=== PATIENT | female | born 2000 | race African-American/Black ===

== ENCOUNTER 2019-05-01 00:23 | Emergency (ER) | payer SELFPAY | END 2019-05-01 02:35 | LOC: JER 00:23 ==

== ENCOUNTER 2019-05-14 13:59 | Emergency (ER) | payer SELFPAY ==
[2019-05-14 14:04] VITALS: BP 114/63; PULSE 93; TEMP 98.6; BMI 20.3
--- NOTE | 2019-05-14 14:59 | PDOC ---
History of Present Illness - General Chief Complaint: Rash Stated Complaint: SKIN ITCHY Time Seen by Provider: 05/14/19 14:10 History Source: Patient Exam Limitations: No Limitations Past History - Past Medical History Allergies/Adverse Reactions: Allergies Allergy/AdvReac Type Severity Reaction Status Date / Time No Known Allergies Allergy Verified 05/14/19 14:04 Home Medications: Ambulatory Orders Clotrimazole/Betamet Diprop [Lotrisone Cream (Small Tube)] 1 applic TP BID #1 tube 05/14/19 COPD: No - Suicide/Smoking/Psychosocial Hx Smoking History: Never smoked Have you smoked in the past 12 months: No Hx Alcohol Use: No Drug/Substance Use Hx: No *Physical Exam - Vital Signs Last Vital Signs Temp Pulse Resp BP Pulse Ox 98.6 F 93 H 18 114/63 99 05/14/19 14:01 05/14/19 14:01 05/14/19 14:01 05/14/19 14:01 05/14/19 14:01 - Physical Exam General Appearance: No: Apparent Distress Respiratory/Chest: positive: Lungs Clear, Normal Breath Sounds. negative: Respiratory Distress Cardiovascular: positive: Regular Rhythm, Regular Rate, S1, S2. negative: Murmur Female Pelvic Exam: positive: other (+R labia minora slightly swollen, slight erythema external vagina, no lesions noted, no discharge noted) Gastrointestinal/Abdominal: positive: Normal Bowel Sounds, Soft. negative: Tender, Distended, Guarding, Rebound Neurologic: positive: Alert, Normal Mood/Affect Medical Decision Making - Medical Decision Making 18 y/o F with no sig pmh presents with itching along vaginal area after using Men's body wash along area yesterday. Denies fever, sob, cp, abd pain, n/v/d, unusual vaginal discharge Possible allergic vs fungal rash? Will discharge on Lotrisone 05/14/19 14:55 *DC/Admit/Observation/Transfer Diagnosis at time of Disposition: Rash - Discharge Dispostion Disposition: HOME Condition at time of disposition: Stable Decision to Admit order: No - Prescriptions Prescriptions: Clotrimazole/Betamet Diprop [Lotrisone Cream (Small Tube)] 1 applic TP BID #1 tube - Referrals - Patient Instructions Printed Discharge Instructions: DI for Rash Additional Instructions: Thank you for choosing [facility]. It was a pleasure taking care of you. Apply the cream twice a day Follow-up with polymer tester in 2-3 days Avoid douching. You can clean external vaginal area with unscented soap and water. Return to the Emergency Department if your symptoms worsen or persist or have other concerning symptoms. - Post Discharge Activity
== END 2019-05-14 15:00 | disposition home or self-care (01) ==
LOC: JERFT 13:59
DX: R21 Rash and other nonspecific skin eruption (principal)
CPT/HCPCS: 99281-25

== ENCOUNTER 2019-07-04 10:40 | Emergency (ER) | payer SELFPAY ==
[2019-07-04 10:43] VITALS: BP 101/56; PULSE 74; TEMP 98.1; BMI 20.1
--- NOTE | 2019-07-04 11:28 | PDOC ---
History of Present Illness - General Chief Complaint: Bite Stated Complaint: BUG BITE Time Seen by Provider: 07/04/19 11:08 History Source: Patient - History of Present Illness Initial Comments: 07/04/19 11:57 Chief complaint: insect bite Patient is a healthy 18-year-old female who states she was bitten yesterday by an insect, does not know what it was and the area is itchy. Patient states she' s never had this before and was concerned because she didn't know what it was. Patient has not done any treatment. Patient otherwise feels well. GENERAL/CONSTITUTIONAL: No fever, weakness. dizziness HEAD, EYES, EARS, NOSE AND THROAT: No change in vision. No ear pain or discharge. No sore throat. CARDIOVASCULAR: No chest pain RESPIRATORY: No shortness of breath or cough GASTROINTESTINAL: No pain, nausea, vomiting, diarrhea or constipation GENITOURINARY: No dysuria MUSCULOSKELETAL: No neck or back pain SKIN: +insect bite NEUROLOGIC: No headache, vertigo, loss of consciousness, or loss of sensation. GENERAL: The patient is awake, alert, and fully oriented, in no acute distress. HEAD: Normal with no signs of trauma. EYES: Pupils equal, round and reactive to light, sclera anicteric, conjunctiva clear. ENT: pharynx: no erythema, no exudate, uvula midline NECK: supple CHEST: clear, nontender, rr BACK: no tenderness or signs of injury EXTREMITIES: right thigh with 2 cm raised red blanchable pruitic area. no signs of infection. no swelling. rest of extremities, Normal range of motion, no edema. NEUROLOGICAL: Normal speech, normal gait. SKIN: Warm, Dry Past History - Past Medical History Allergies/Adverse Reactions: Allergies Allergy/AdvReac Type Severity Reaction Status Date / Time No Known Allergies Allergy Verified 07/04/19 10:43 Home Medications: Ambulatory Orders Clotrimazole/Betamet Diprop [Lotrisone Cream (Small Tube)] 1 applic TP BID #1 tube 05/14/19 COPD: No - Suicide/Smoking/Psychosocial Hx Smoking History: Never smoked Have you smoked in the past 12 months: No Hx Alcohol Use: No Drug/Substance Use Hx: No *Physical Exam - Vital Signs Last Vital Signs Temp Pulse Resp BP Pulse Ox 98.1 F 74 18 101/56 L 98 07/04/19 10:41 07/04/19 10:41 07/04/19 10:41 07/04/19 10:41 07/04/19 10:41 Medical Decision Making - Medical Decision Making 07/04/19 12:10 Discussed issues, findings, results, applicable medications and treatments and follow-up. All these were understood and all questions were answered *DC/Admit/Observation/Transfer Diagnosis at time of Disposition: Insect bite Qualifiers: Encounter type: initial encounter Site of insect bite: thigh Laterality: right Qualified Code(s): S70.361A - Insect bite (nonvenomous), right thigh, initial encounter - Discharge Dispostion Disposition: HOME Condition at time of disposition: Stable - Referrals - Patient Instructions Printed Discharge Instructions: How to Care for an Insect Bite or Sting Additional Instructions: Clean with soap and water 2-3 times daily apply Benadryl cream every 4 hours for itching until itching stops. You can also apply [id number] cortisone cream twice a day Have her reevaluated if redness, pus, fever or getting worse Followup with your doctor if any concerns - Post Discharge Activity
== END 2019-07-04 11:33 | disposition home or self-care (01) ==
LOC: JERFT 10:40
DX: S70.361A Insect bite (nonvenomous), right thigh, initial encounter (principal); W57.XXXA Bitten or stung by nonvenomous insect and other nonvenomous arthropods, initial encounter; Y93.89 Activity, other specified; Y92.89 Other specified places as the place of occurrence of the external cause
CPT/HCPCS: 99281-25

== ENCOUNTER 2019-12-30 00:05 | Emergency (ER) | payer OTHER ==
--- NOTE | 2019-12-30 00:47 | PDOC ---
History of Present Illness - General Chief Complaint: Headache Stated Complaint: HEADACHE Past History - Past Medical History Allergies/Adverse Reactions: Allergies Allergy/AdvReac Type Severity Reaction Status Date / Time No Known Allergies Allergy Verified 12/30/19 00:22 Home Medications: Ambulatory Orders NK [No Known Home Medication] 12/30/19 COPD: No - Psycho Social/Smoking Cessation Hx Smoking History: Never smoked Have you smoked in the past 12 months: No Information on smoking cessation initiated: No Hx Alcohol Use: No Drug/Substance Use Hx: No Review of Systems - Review of Systems Able to Perform ROS?: Yes Comments:: GENERAL/CONSTITUTIONAL: No fever or chills. No weakness._ HEAD, EYES, EARS, NOSE AND THROAT: No change in vision. No change in hearing. No sore throat._ CARDIOVASCULAR: No chest pain or shortness of breath_ RESPIRATORY: Denies cough, hemoptysis_ GASTROINTESTINAL: No nausea, vomiting, diarrhea or constipation._ GENITOURINARY: No dysuria, frequency, or change in urination._ MUSCULOSKELETAL: No joint or muscle swelling or pain. No neck or back pain._ SKIN: No rash_ NEUROLOGIC: No headache, vertigo, loss of consciousness, or change in strength/ sensation._ ENDOCRINE: No increased thirst. No abnormal weight change_ HEMATOLOGIC/LYMPHATIC: No anemia, easy bleeding, or history of blood clots._ ALLERGIC/IMMUNOLOGIC: No hives or skin allergy._ 12/30/19 00:46 Is the patient limited [place] proficient: No *Physical Exam - Vital Signs Last Vital Signs Temp Pulse Resp BP Pulse Ox 98.0 F 79 20 110/68 99 12/30/19 00:22 12/30/19 00:22 12/30/19 00:22 12/30/19 00:22 12/30/19 00:22 - Physical Exam GENERAL: Awake, alert, and oriented to person/place/time, in no acute distress_ HEAD: No signs of trauma, normocephalic, atraumatic _ EYES: PERRLA, EOMI, sclera anicteric, conjunctiva clear_ ENT: Hearing grossly normal, nares patent, oropharynx clear without exudates. No uvular deviation. Moist mucosa_ NECK: Normal ROM, supple, no lymphadenopathy, JVD, or masses_ LUNGS: No distress, speaks in full sentences, clear to auscultation bilaterally _ HEART: Regular rate and rhythm, normal S1 and S2, no murmurs appreciated, peripheral pulses normal and equal bilaterally._ ABDOMEN: Soft, nontender, normoactive bowel sounds. No guarding, no rebound. No masses_ EXTREMITIES: Normal inspection, Normal range of motion, no edema. No clubbing or cyanosis_ NEUROLOGICAL: Cranial nerves II through XII grossly intact. Normal speech, normal gait, no focal sensorimotor deficits _ SKIN: Warm, Dry, normal turgor, no rashes or lesions noted_ 12/30/19 00:46
[2019-12-30 00:51] VITALS: BP 110/68; PULSE 79; TEMP 98; BMI 21.3
--- NOTE | 2019-12-30 01:40 | PDOC ---
History of Present Illness - General Chief Complaint: Headache Stated Complaint: HEADACHE Time Seen by Provider: 12/30/19 01:19 - History of Present Illness Initial Comments: 12/30/19 21:00 19 yo F PMH migraines presenting with bitemporal headache. Patient reports that it began this evening, unresponsive to Tylenol, without any associated photophobia, phonophobia, N/V. Has had similar headaches in the past, but they have typically resolved with Tylenol. Does not have a neurologist. Past History - Past Medical History Allergies/Adverse Reactions: Allergies Allergy/AdvReac Type Severity Reaction Status Date / Time No Known Allergies Allergy Verified 12/30/19 00:22 Home Medications: Ambulatory Orders NK [No Known Home Medication] 12/30/19 COPD: No - Psycho Social/Smoking Cessation Hx Smoking History: Never smoked Have you smoked in the past 12 months: No Information on smoking cessation initiated: No Hx Alcohol Use: No Drug/Substance Use Hx: No Review of Systems - Review of Systems Comments:: 12/30/19 21:07 GENERAL/CONSTITUTIONAL: denies fever, chills, diaphoresis, generalized weakness , malaise, loss of appetite, weight change HEAD, EYES, EARS, NOSE AND THROAT: denies rhinorrhea, nasal congestion, throat pain, throat swelling, difficulty swallowing, mouth swelling, ear pain, eye pain , visual changes NEUROLOGIC: endorses bitemporal headache. Denies focal weakness or paresthesias , dizziness, unsteady gait, seizure, mental status changes, bladder or bowel incontinence CARDIOVASCULAR: denies chest pain, syncope, palpitations, irregular heart rate, lightheadedness, peripheral edema RESPIRATORY: denies cough, shortness of breath, dyspnea with exertion, orthopnea , wheezing, stridor, hemoptysis GASTROINTESTINAL: denies abdominal pain, abdominal distension, nausea, vomiting , diarrhea, constipation, melena, hematochezia GENITOURINARY: denies dysuria, frequency, urgency, hesitancy, hematuria, flank pain, genital pain MUSCULOSKELETAL: denies myalgia, arthralgia, joint swelling, back pain, neck pain SKIN: denies rash, itching, pallor HEMATOLOGIC/IMMUNOLOGIC: denies easy bleeding, easy bruising, lymphadenopathy, frequent infections ENDOCRINE: denies unexplained weight gain, unexplained weight loss, heat intolerance, cold intolerance PSYCHIATRIC: denies anxiety, depression, suicidal or homicidal ideation, hallucinations. *Physical Exam - Vital Signs Last Vital Signs Temp Pulse Resp BP Pulse Ox 98.0 F 79 20 110/68 99 12/30/19 00:22 12/30/19 00:22 12/30/19 00:22 12/30/19 00:22 12/30/19 00:22 - Physical Exam 12/31/19 05:08 GENERAL: Awake, alert, and fully oriented, in no acute distress. HEAD: Normal with no signs of trauma. EYES: Pupils equal, round and reactive to light, extraocular movements intact, sclera anicteric, conjunctiva clear. No lid lag. EARS, NOSE, THROAT: Ears normal, nares patent, oropharynx clear without exudates. Dry mucous membranes. NECK: Normal range of motion, supple without lymphadenopathy, JVD, or masses. LUNGS: Breath sounds equal, clear to auscultation bilaterally. No wheezes, and no crackles. No accessory muscle use. HEART: Regular rate and rhythm, normal S1 and S2 without murmur, rub or gallop. ABDOMEN: Soft, nontender, non-distended, normoactive bowel sounds, negative guarding, negative rebound MUSCULOSKELETAL: Normal range of motion at all joints. No bony deformities or tenderness. No CVA tenderness. UPPER EXTREMITIES: 2+ pulses, warm, well-perfused. No cyanosis. No clubbing. Cap refill <2 seconds. No peripheral edema. LOWER EXTREMITIES: 2+ pulses, warm, well-perfused. No calf tenderness. No peripheral edema. NEUROLOGICAL: Cranial nerves II-XII intact. Normal speech. Normal gait. PSYCHIATRIC: Cooperative. Good eye contact. Appropriate mood and affect. SKIN: Warm, dry, normal turgor, no rashes or lesions noted. ED Treatment Course - LABORATORY CBC & Chemistry Diagram: 12/30/19 01:40 12/30/19 01:40 Medical Decision Making - Medical Decision Making 12/30/19 21:00 Concern for possible tension headache. Will r/o , treat with IVF, Reglan, CBC, CMP, Ofirmev. 12/30/19 23:17 Patient feeling better. Will dc with neurological follow up. Discharge - Discharge Information Problems reviewed: Yes Clinical Impression/Diagnosis: Headache - Follow up/Referral Referrals: Matt Maradiaga MD [Primary Care Provider] - Mehul Myers MD [Staff Physician] - - Patient Discharge Instructions Patient Printed Discharge Instructions: DI for Migraine Additional Instructions: You were seen with a headache. This improved with medications. Please follow with your primary care doctor. We have also referred you to a neurologist, please reach out to make an appointment. Return to the ED if you develop worsening symptoms. - Post Discharge Activity
[2019-12-30] MEDS ORDERED: METOCLOPRAMIDE HCL INJECTION 10 MG/2 ML VIAL IVPUSH ONE (01:41)
[2019-12-30] MEDS ORDERED: ACETAMINOPHEN 1000 MG/100 ML VIAL (NON FORMULARY) IVPB ONE (01:41)
[2019-12-30] MEDS ORDERED: LACTATED RINGERS SOLUTION 1000 ML INFUS.BAG IV ONE (01:41)
[2019-12-30] MEDS ORDERED: METOCLOPRAMIDE HCL INJECTION 10 MG/2 ML VIAL ONE (01:54)
[2019-12-30] MEDS ORDERED: ACETAMINOPHEN INJECTION 100 ML IVPB ONE (01:54)
[2019-12-30 01:57] LABS: BASO % 1.5 % (0-2.0); EOS % 2.3 % (0-4.5); HEMATOCRIT 36.1 % (32.4-45.2); HEMOGLOBIN 12.3 GM/dL (10.7-15.3); LYMPH % 47.9 % (8-40); MCH 30.7 pg (25.7-33.7); MEAN CELL VOLUME 90.3 fl (80-96); MEAN PLT VOLUME 9.5 fl (7.5-11.1); MONO % 7.2 % (3.8-10.2); NEUT % 41.1 % (42.8-82.8); PLATELET COUNT 198 K/MM3 (134-434); RDW 14.5 % (11.6-15.6); WHITE BLOOD COUNT 4.6 K/mm3 (4.0-10.0)
[2019-12-30 02:31] LABS: ALBUMIN 3.8 g/dl (3.4-5.0); BILIRUBIN,TOTAL 0.3 mg/dL (0.2-1); BLOOD UREA NITROGEN 13.1 mg/dL (7-18); CALCIUM 9.1 mg/dL (8.5-10.1); CREATININE 0.7 mg/dL (0.55-1.3); POTASSIUM 3.6 mmol/L (3.5-5.1)
[2019-12-30 02:53] LABS: URINE APPEARANCE CLOUDY; URINE BILIRUBIN NEGATIVE (NEGATIVE); URINE COLOR YELLOW; URINE GLUCOSE (UA) NEGATIVE (NEGATIVE); URINE KETONE NEGATIVE (NEGATIVE); URINE LEUK ESTERASE NEGATIVE (NEGATIVE); URINE NITRITE NEGATIVE (NEGATIVE); URINE PROTEIN NEGATIVE (NEGATIVE)
== END 2019-12-30 03:22 | disposition home or self-care (01) ==
LOC: JER 00:05
PROC: 3E033NZ Introduction of Analgesics, Hypnotics, Sedatives into Peripheral Vein, Percutaneous Approach (ICD-10-PCS; principal; 2019-12-30)
PROC: 3E033GC Introduction of Other Therapeutic Substance into Peripheral Vein, Percutaneous Approach (ICD-10-PCS; 2019-12-30)
DX: R51 Headache (principal)
CPT/HCPCS: 36415; 80053; 81003; 84703; 85025; 87086; 96374; 96375; 99284-25; J0131

== ENCOUNTER 2020-01-22 00:10 | Emergency (ER) | payer OTHER ==
[2020-01-22 00:34] VITALS: BP 111/60; PULSE 68; TEMP 97.9; BMI 19.3
[2020-01-22] MEDS ORDERED: CLOTRIMAZOLE 1% CREAM 15 GM TUBE TP ONE (00:48)
--- NOTE | 2020-01-22 01:01 | PDOC ---
History of Present Illness - General Chief Complaint: Rash Stated Complaint: RASH Time Seen by Provider: 01/22/20 00:40 History Source: Patient Exam Limitations: No Limitations - History of Present Illness Initial Comments: 01/22/20 00:52 Patient is a 19-year-old female with no pmhx c/o rash x 1 week. States she had a little spot on the left breast which has progressively gotten bigger but then today she saw little spots coming up on the thorax. Patient states the rash is not itchy, or painful. Denies any sick contact, does not play sports. PMD: does not remember name PMHX: as above PSOCHX: neg etoh, cig, drugs ALL: NKDA GENERAL/CONSTITUTIONAL: [No fever or chills. No weakness. No weight change.] HEAD, EYES, EARS, NOSE AND THROAT: [No change in vision. No ear pain or discharge. No sore throat.] CARDIOVASCULAR: [No chest pain or shortness of breath.] RESPIRATORY: [No cough, wheezing, or hemoptysis.] GASTROINTESTINAL: [No nausea, vomiting, diarrhea or constipation. No rectal bleeding.] MUSCULOSKELETAL: [No joint or muscle swelling or pain. No neck or back pain.] SKIN AND BREASTS: [(+) rash or easy bruising.] HEMATOLOGIC/LYMPHATIC: [No anemia, easy bleeding, or history of blood clots.] GENERAL: [The patient is awake, alert, and fully oriented, in no acute distress.] NECK: [Normal range of motion, supple without lymphadenopathy, JVD, or masses.] LUNGS: [Breath sounds equal, clear to auscultation bilaterally. No wheezes, and no crackles.] HEART: [Regular rate and rhythm, normal S1 and S2 without murmur, rub.] ABDOMEN: [Soft, nontender, normoactive bowel sounds. No guarding, no rebound. No masses.] EXTREMITIES: [Normal range of motion, no edema. No clubbing or cyanosis. No cords, erythema, or tenderness.] NEUROLOGICAL: [Cranial nerves II through XII grossly intact. Normal speech, normal gait.] SKIN: [Warm, Dry, normal turgor, (+) raised hyperpigment scaly rashes noted on left breast and upper thorax, no other lesions noted.] Past History - Past Medical History Allergies/Adverse Reactions: Allergies Allergy/AdvReac Type Severity Reaction Status Date / Time No Known Allergies Allergy Verified 01/22/20 00:34 Home Medications: Ambulatory Orders Oxiconazole Nitrate 60 gm TP BID #1 cream..g. 01/22/20 COPD: No - Psycho Social/Smoking Cessation Hx Smoking History: Never smoked Have you smoked in the past 12 months: No Hx Alcohol Use: No Drug/Substance Use Hx: No *Physical Exam - Vital Signs Last Vital Signs Temp Pulse Resp BP Pulse Ox 97.9 F 68 18 111/60 97 01/22/20 00:10 01/22/20 00:10 01/22/20 00:10 01/22/20 00:10 01/22/20 00:10 Medical Decision Making - Medical Decision Making 01/22/20 00:52 Patient is a 19-year-old female with no pmhx c/o rash x 1 week. States she had a little spot on the left breast which has progressively gotten bigger but then today she saw little spots coming up on the thorax. Patient states the rash is not itchy, or painful. Denies any sick contact, does not play sports. Symptoms consistent with tinea corporis Clotrimazole applied in the ED I discussed the physical exam findings, ancillary test results and final diagnoses with the patient. I answered all of the patient's questions. The p atient was satisfied with the care received and felt comfortable with the discharge plan and treatment plan. The Patient agrees to follow up with the primary care physician within 24-72 hours. Discharge - Discharge Information Problems reviewed: Yes Clinical Impression/Diagnosis: Tinea corporis Condition: Stable Disposition: HOME - Additional Discharge Information Prescriptions: Oxiconazole Nitrate 60 gm TP BID #1 cream..g. - Follow up/Referral - Patient Discharge Instructions Patient Printed Discharge Instructions: DI for Tinea Corporis Additional Instructions: Your Discharge Instructions: You must call primary care physician within 24 hours to arrange follow-up. Return to the Emergency Department with any new, persistent or worsening symptoms, for fever, chills, SOB, dizziness or any other concerning changes that may occur. You must follow-up with dermatology for further evaluation and treatment. - Post Discharge Activity
== END 2020-01-22 01:32 | disposition home or self-care (01) ==
LOC: JER 00:10
DX: B35.4 Tinea corporis (principal)
CPT/HCPCS: 99283-25

== ENCOUNTER 2021-12-02 10:45 | Emergency (ER) | payer OTHER ==
[2021-12-02 10:54] VITALS: BP 111/76; PULSE 86; TEMP 97.8; BMI 22.1
[2021-12-02] MEDS ORDERED: IBUPROFEN 400 MG TABLET (FP) PO ONE ×2 (11:11→11:14)
== END 2021-12-02 11:32 | disposition home or self-care (01) ==
LOC: JERFT 10:45
DX: H92.03 Otalgia, bilateral (principal)
CPT/HCPCS: 99283-25

== ENCOUNTER 2022-11-12 12:41 | Emergency (ER) | payer OTHER ==
[2022-11-12 12:54] VITALS: BP 105/70; PULSE 80; RESP 19; TEMP 98; BMI 20.9
[2022-11-12 13:55] LABS: EPI CELLS >36 /uL (0-25.1); HCG,QUALITATIVE URINE Negative; HYALINE CASTS 7 /uL (0-3.1); PH,URINE 5.5 (5.0-8.0); URINE APPEARANCE CLEAR; URINE BACTERIA 52 /uL (0-1359); URINE BILIRUBIN NEGATIVE (NEGATIVE); URINE COLOR YELLOW; URINE GLUCOSE (UA) NEGATIVE (NEGATIVE); URINE KETONE NEGATIVE (NEGATIVE); URINE LEUK ESTERASE 2+ (NEGATIVE); URINE NITRITE NEGATIVE (NEGATIVE); URINE PROTEIN TRACE (NEGATIVE); URINE RBC 42 /uL (0-23.9); URINE WBC 106 /uL (0-25.8)
== END 2022-11-12 14:05 | disposition home or self-care (01) ==
LOC: JERFT 12:41
DX: N30.00 Acute cystitis without hematuria (principal)
CPT/HCPCS: 81003; 84703; 87086; 99283-25

== ENCOUNTER → 2023-02-15 | Emergency (ER) | payer OTHER ==
[~2023-02-15] MED LIST: FAMOTIDINE 20 MG TABLET ONE; MAG HYDROX/AL HYDROX/SIMETH 30 ML UNIT-DOSE CUP ONE
[2023-02-15 08:29] VITALS: BP 129/73; PULSE 86; RESP 18; TEMP 97.8; BMI 20.2
[2023-02-15 09:25] LABS: BASO % 0.9 % (0-2.0); EOS % 0.8 % (0-4.5); HEMATOCRIT 36.6 % (32.4-45.2); HEMOGLOBIN 12.7 GM/dL (10.7-15.3); LYMPH % 23.1 % (8-40); MCH 30.7 pg (25.7-33.7); MCHC 34.6 g/dl (32.0-36.0); MEAN CELL VOLUME 88.7 fl (80-96); MEAN PLT VOLUME 9.4 fl (7.5-11.1); NEUT % 69.2 % (42.8-82.8); PLATELET COUNT 193 10^3/uL (134-434); RBC 4.13 M/mm3 (3.60-5.2); RDW 14.8 % (11.6-15.6); WHITE BLOOD COUNT 5.5 K/mm3 (4.0-10.0)
[2023-02-15 09:34] LABS: INR 1.11 (0.83-1.09); PROTHROMBIN TIME (PATIENT) 12.9 SEC (9.7-13.0)
[2023-02-15 09:36] LABS: ACTIVATED PTT 32.1 SECONDS (25.2-36.5)
[2023-02-15 09:52] LABS: CALCIUM 9.1 mg/dL (8.5-10.1)
[2023-02-15 09:53] LABS: ALBUMIN 3.8 g/dl (3.4-5.0); BLOOD UREA NITROGEN 9.6 mg/dL (7-18)
[2023-02-15 09:56] LABS: CREATININE 0.6 mg/dL (0.55-1.3)
[2023-02-15 09:58] LABS: BILIRUBIN,TOTAL 0.6 mg/dL (0.2-1); TOT PROT 7.2 g/dl (6.4-8.2)
[2023-02-15 11:57] LABS: URINE APPEARANCE CLEAR; URINE BILIRUBIN NEGATIVE (NEGATIVE); URINE COLOR YELLOW; URINE GLUCOSE (UA) NEGATIVE (NEGATIVE); URINE KETONE NEGATIVE (NEGATIVE); URINE LEUK ESTERASE NEGATIVE (NEGATIVE); URINE NITRITE NEGATIVE (NEGATIVE); URINE PROTEIN NEGATIVE (NEGATIVE); URINE UROBILINOGEN 0.2 mg/dL (0.2-1.0)
== END | disposition home or self-care (01) ==
LOC: JER 08:20
DX: O26.851 Spotting complicating pregnancy, first trimester (principal); Z3A.01 Less than 8 weeks gestation of pregnancy
CPT/HCPCS: 36415; 76817-TC; 80053; 81003; 84702; 84703; 85025; 85610; 85730; 86850; 86900; 86901; 87086; 99284-25

== ENCOUNTER 2023-02-27 11:33 | Emergency (ER) | payer OTHER ==
[2023-02-27 11:42] VITALS: BP 117/71; PULSE 80; RESP 18; TEMP 97; BMI 20.9
== END 2023-02-27 13:32 | disposition home or self-care (01) ==
LOC: JERFT 11:33 → JER 11:33 → JERFT 13:32
DX: O99.611 Diseases of the digestive system complicating pregnancy, first trimester (principal); K08.89 Other specified disorders of teeth and supporting structures; Z3A.01 Less than 8 weeks gestation of pregnancy
CPT/HCPCS: 99283-25